=== PATIENT | male | born 1935 ===

== ENCOUNTER 2016-10-28 09:40 | Emergency (ER) | payer MEDICARE, MEDICAID ==
[~2016-10-28] VITALS: Ht 162.6 cm; Wt 59.0 kg
--- OUTSIDE RECORDS SUMMARY | 2016-10-28 09:45 | XMS REPORT | Continuity of Care Document ---
Author Author [facility] Address Unknown Phone Unavailable Support Name Relationship Address Phone ESTHER BARRAZA MD Caregiver [address] [place] [address] Unavailable ESTHER BARRAZA MD Caregiver [address] [place] [address] Unavailable MANOHAR WALDEN MD Caregiver [address] [place] [address] Unavailable ARELY SALAS MD Caregiver [address] [place] [address] Unavailable LANDY NETTLES Next Of Kin [address] [place] [address] Insurance Providers Guarantor Eduardo Nettles Address [address] [place] [address] Email DENIED/NO TO PT PORT/NO EMAIL Payer [employer] Policy Number [id number] Subscriber's Name Eduardo Nettles Relationship 18 Self Effective Date 15 Advance Directives Directive Response Recorded Date/Time Advanced Directives Type DPOA for Healthcare Unable to Obtain 05/24/16 9:35am Ordered Resuscitation Status Do Not Resuscitate 05/24/16 12:39pm Resuscitation Documents on File No 05/24/16 1:45pm DPOA for Healthcare Only Y DAUGHTER-ALVAREZ 05/24/16 1:45pm Living Will No 05/24/16 1:45pm Problems Active Problems Medical Problem Onset Date Status Acute respiratory failure with hypoxia Unknown Resolved Bone metastases Unknown Chronic Chronic back pain Unknown Chronic Chronic steroid use Unknown Chronic Edema of upper extremity Unknown Acute History of kidney stones Unknown Resolved Hypocalcemia Unknown Acute Hypokalemia Unknown Resolved Immunocompromised patient Unknown Acute Macrocytic anemia Unknown Prostate cancer Unknown Chronic Septic shock Unknown Resolved Severe sepsis Unknown Acute Tachycardia Unknown Resolved Past Problems Medical Problem Onset Date Sepsis Unknown Medications Current Home Medications Medication Dose Units Route Directions Days Qty Instructions Start Date Amox Tr/Potassium Clavulanate (Amox Tr-K Clv 875-125 Mg Tab) 875 Mg Tablet 875 Mg Oral Twice A Day for Infection 7 05/30/16 Aspirin 81 Mg Tab.chew 81 Mg Oral Daily 05/24/16 Calcium Carbonate/Vitamin D3 (Calcium 600 + Vit D 400 Tablet) 1 Each Tablet 1 Tab Oral Twice A Day 100 Tablet 05/30/16 Docusate Sodium 100 Mg Tablet 200 Mg Oral Daily 05/24/16 Dronabinol 2.5 Mg Capsule 2.5 Mg Oral Twice A Day 05/24/16 Guaifenesin (Mucinex) 600 Mg Tbbp.12hr 600 Mg Oral Twice A Day for Congestion 10 05/30/16 Hydrocodone/Acetaminophen ([place] 10-325 Tablet) 10-325 Tablet 1 Tab Oral Four Times Daily 05/24/16 Loratadine (Claritin) 10 Mg Tablet 10 Mg Oral Daily 05/24/16 Omeprazole Magnesium (Prilosec Otc) 20 Mg Tablet.dr 20 Mg Oral Twice A Day 05/24/16 Ondansetron Hcl 4 Mg Tablet 4 Mg Oral Q6h/0300,0900,1500,2100 as needed for Nausea 30 Tablet 05/30/16 Oxycodone Hcl (Oxycodone Hcl Er) 20 Mg Tab.er.12h 20 Mg Oral Twice A Day 05/24/16 Polyethylene Glycol 3350 (Miralax) 17 Gm Powd.pack 17 G Oral Daily 05/24/16 Prednisone 5 Mg Tablet 5 Mg Oral Twice A Day 05/24/16 Tamsulosin Hcl 0.4 Mg Cap.er.24h 0.4 Mg Oral Bedtime 05/24/16 Past Home Medications Medication Directions Ordered Status Calcium Carbonate/Vitamin D3 (Calcium 600 + Vit D 200 Tablet) 1 Each Tablet, 1 Tab Oral Daily 05/24/16 Discontinued Social History Social History Problem Response Recorded Date/Time Onset Date Status Chronic narcotic use 05/24/2016 4:57pm Unknown Active Reason for Hospitalization Sepsis 05/30/2016 3:09pm Not Applicable Not Applicable Hx Alcohol Use No 05/24/2016 10:13am Not Applicable Not Applicable Has the pt used tobacco in the last 12 months No 05/24/2016 1:39pm Not Applicable Not Applicable Query Response Start Date Stop Date Smoking Status Never smoker Hospital Discharge Instructions Instructions: Care Instructions: Reason for Hospitalization: Sepsis I was in the hospital because (patient own words): UNABLE TO SAY Discharge Diet: Regular Discharge Activity: As tolerated - O2 at 2L with activities Follow Up Appointments: Dr Crowder on 05/31/2016 Dr Salas in 1 week [phone] 06/06/16 10:30 WITH RAMU. Pending Lab / Results: Follow up w/ your PCP Patient Instructions: Mucinex 600mg twice a day for 5 days, then as needed for congestion. Start Augmentin this evening Deep breathing excersises 6 times a day. May follow up on ECHO report with Dr Salas Wound/Incision Care: n/a Durable Medical Equipment: O2 at 2L with ambulation Pain Management/Treatment: Continue prior pain medications Expected Signs/Symptoms: Improvement of respiratory and functional status Notify Physician If: Temp >100.4. Intractable n/v. During Business Hours:: Please call the physician's office at After Business Hours:: Please call [phone] and have the shredding floor equipment operator page the physician. Condition at time of discharge: Good Plan of Care Discharge Date 05/30/16 4:53pm Disposition 01 DISCHARGED HOME, SELF-CARE Instructions/Education Provided DI for Sepsis -- Adult Prescriptions See Medication Section Care Plan and Goals See Discharge Instructions Section Functional Status Query Response Date Recorded Mobility Status Ambulatory May 30, 2016 3:09pm Assistive Devices None May 30, 2016 3:09pm Activity Limitations Weakness Fatigue May 30, 2016 3:09pm Feeding Ability Independent May 30, 2016 3:09pm Toileting Ability Independent May 30, 2016 3:09pm Grooming Ability Independent May 30, 2016 3:09pm Dressing Ability Independent May 30, 2016 3:09pm Driving Ability Independent May 30, 2016 3:09pm Housework Ability Assist May 30, 2016 3:09pm Meal Preparation Ability Assist May 30, 2016 3:09pm Stair Climbing Ability Assist May 30, 2016 3:09pm Ability to complete ADL's impeded by No change May 30, 2016 3:09pm Cognitive/Perceptual Impairments Impaired vision May 30, 2016 3:09pm Visual Assistive Devices Glasses May 30, 2016 1:25pm Allergies, Adverse Reactions, Alerts Allergen Type Severity Reaction Status Last Updated Iodinated Contrast Media - IV Dye Allergy Unknown Active 05/24/16 Immunizations Query Response on File Recorded Date/Time Hx Influenza Vaccination No 05/24/16 1:39pm Hx Pneumococcal Vaccination UNKNOWN 05/24/16 1:39pm Hx Influenza Vaccination No 05/24/16 1:39pm Vital Signs Acute Vital Signs Vital Response Date/Time Temperature (Fahrenheit) 99.0 deg F (96.8 - 99.1) 05/30/2016 8:00am Temperature (Calculated Celsius) 37.52117 degrees C (36.0 - 37.3) 05/30/2016 8:00am Pulse Rate (adult) 113 bpm (60 - 100) 05/30/2016 11:35am Respiratory Rate 17 breaths/min (10 - 20) 05/30/2016 11:35am O2 Sat by Pulse Oximetry 91 % (90 - 100) 05/30/2016 11:35am Oxygen Delivery Method Room Air 05/30/2016 5:52am Oxygen Delivery Method Room Air 05/30/2016 11:35am Oxygen Flow Rate 1.00 L/min 05/25/2016 7:30am Blood Pressure 107/65 mm Hg 05/30/2016 11:35am Blood Pressure Source Arterial Line 05/30/2016 8:00am Height (Feet) 5 feet 05/30/2016 1:08pm Height (Inches) 7.00 inches 05/30/2016 1:08pm Weight (Kilograms) 58.400 kg 05/30/2016 8:00am Body Mass Index (BMI) 20.0 05/24/2016 1:37pm Results Laboratory Results Test Name Result Units Flags Reference Collection Date/Time Result Date/ Time Comments White Blood Count 13.2 T/MM3 D H 4.5-11.0 05/30/2016 4:33am 05/30/2016 5: 12am Red Blood Count 3.06 M/MM3 L 4.50-5.90 05/30/2016 4:33am 05/30/2016 5: 12am Hemoglobin 10.0 GM/DL L 13.5-17.5 05/30/2016 4:33am 05/30/2016 5:12am Hematocrit 30.3 % L 41-53 05/30/2016 4:33am 05/30/2016 5:12am Mean Corpuscular Volume 99.0 UM3 80-100 05/30/2016 4:33am 05/30/2016 5: 12am Mean Corpuscular Hemoglobin 32.7 UUG 26-34 05/30/2016 4:33am 2015 5:12am Mean Corpuscular Hemoglobin Concent 33.0 GM/DL 31-37 05/30/2016 4:3305/30/2016 5:12am RDW Standard Deviation 55.2 FL H 36.9-50.2 05/30/2016 4:3305/30/2016 5:12am Platelet Count 299 T/MM3 130-400 05/30/2016 4:3305/30/2016 5:12am Mean Platelet Volume 9.2 UM3 L 9.4-12.4 05/30/2016 4:3305/30/2016 5: 12am Neutrophils (%) (Auto) 72.7 % H 33-66 05/30/2016 4:3305/30/2016 5: 12am Lymphocytes (%) (Auto) 16.0 % L 23-45 05/30/2016 4:3305/30/2016 5: 12am Monocytes (%) (Auto) 10.1 % H 0-9.0 05/30/2016 4:3305/30/2016 5:12am Eosinophils (%) (Auto) 0.3 % 0-4 05/30/2016 4:3305/30/2016 5:12am Basophils (%) (Auto) 0.1 % 0-2 05/30/2016 4:3305/30/2016 5:12am Immature Granulocyte % (Auto) 0.8 % H 0.0-0.5 05/30/2016 4:332015 5:12am Absolute Neutrophils (auto) 9.6 T/MM3 H 1.8-7.7 05/30/2016 4:332015 5:12am Absolute Lymphocytes (auto) 2.1 T/MM3 1-4.8 05/30/2016 4:332015 5:12am Absolute Monocytes (auto) 1.3 T/MM3 H 0-0.8 05/30/2016 4:332015 5:12am Absolute Eosinophils (auto) 0.0 T/MM3 0-0.5 05/30/2016 4:332015 5:12am Absolute Basophils (auto) 0.0 T/MM3 0-0.2 05/30/2016 4:3305/30/2016 5:12am Absolute Immature Granulocyte (auto 0.10 T/MM3 H 0.00-0.03 05/30/2016 4: 33am 05/30/2016 5:12am Neutrophils % (Manual) 77.1 % H 33-66 05/26/2016 1:55am 05/26/2016 2: 07am Band Neutrophils % 6.0 % 0-6 05/25/2016 4:55am 05/25/2016 6:34am Lymphocytes % (Manual) 10.4 % L 23-45 05/26/2016 1:55am 05/26/2016 2: 07am Monocytes % (Manual) 12.0 % H 0-9.0 05/26/2016 1:55am 05/26/2016 2:07am Eosinophils % (Manual) 0.0 % 0-4 05/26/2016 1:55am 05/26/2016 2:07am Basophils % (Manual) 0.0 % 0-2 05/26/2016 1:55am 05/26/2016 2:07am Metamyelocytes % 1.0 % H 0-0 05/25/2016 4:55am 05/25/2016 6:34am Band Neutrophils # 0.5 T/MM3 05/25/2016 4:55am 05/25/2016 6:34am Absolute Neutrophils (Manual) 6.6 T/MM3 1.8-7.7 05/26/2016 1:55am 05/26 2:07am Lymphocytes # (Manual) 0.9 T/MM3 L 1-4.8 05/26/2016 1:55am 05/26/2016 2: 07am Monocytes # (Manual) 1.0 T/MM3 H 0-0.8 05/26/2016 1:55am 05/26/2016 2: 07am Eosinophils # (Manual) 0.0 T/MM3 0-0.5 05/26/2016 1:55am 05/26/2016 2: 07am Basophils # (Manual) 0.0 T/MM3 0-0.2 05/26/2016 1:55am 05/26/2016 2: 07am Metamyelocytes # 0.1 T/MM3 05/25/2016 4:55am 05/25/2016 6:34am Red Cell Morphology Comment NORMAL 05/26/2016 1:55am 05/26/2016 2: 07am Anisocytosis 1+ 05/25/2016 4:55am 05/25/2016 6:34am Icterus Index < 2 0-7 05/30/2016 4:33am 05/30/2016 5:26am Chemistry Specimen Hemolysis < 15 0-25 05/30/2016 4:33am 05/30/2016 5 :26am 0-25: Specimen Exhibited No Hemolysis. Turbidity < 20 0-20 05/30/2016 4:33am 05/30/2016 5:26am Sodium Level 142 MEQ/L 134-144 05/30/2016 4:33am 05/30/2016 5:26am Potassium Level 3.4 MEQ/L L 3.6-5 05/30/2016 4:33am 05/30/2016 5:26am Chloride Level 103 MEQ/L 98-107 05/30/2016 4:33am 05/30/2016 5:26am Carbon Dioxide Level 28 MEQ/L 22-30 05/30/2016 4:33am 05/30/2016 5: 26am Anion Gap 11 MEQ/L 5-15 05/30/2016 4:33am 05/30/2016 5:26am Blood Urea Nitrogen 17.0 MG/DL 9-20 05/30/2016 4:33am 05/30/2016 5: 26am Creatinine 0.6 MG/DL L 0.8-1.5 05/30/2016 4:33am 05/30/2016 5:26am BUN/Creatinine Ratio 28 RATIO H 6-26 05/30/2016 4:33am 05/30/2016 5: 26am Glomerular Filtration Rate Calc 129 05/30/2016 4:33am 05/30/2016 5: 26am Glucose Level 104 MG/DL 75-110 05/30/2016 4:33am 05/30/2016 5:26am Calculated Osmolality 275 MOSM/KG 261-280 05/30/2016 4:33am 05/30/2016 5:26am Calcium Level 6.8 MG/DL L 8.4-10.2 05/30/2016 4:33am 05/30/2016 5:26am Phosphorus Level 2.0 MG/DL L 2.5-4.5 05/29/2016 4:22am 05/29/2016 5: 10am Total Bilirubin 0.50 MG/DL 0.20-1.30 05/25/2016 4:55am 05/25/2016 5: 30am Alkaline Phosphatase 87 U/L D 38-126 05/25/2016 4:55am 05/25/2016 5:32am Total Protein 4.9 G/DL L 6.3-8.2 05/25/2016 4:55am 05/25/2016 5:30am Albumin 2.6 G/DL L 3.5-5.0 05/29/2016 4:22am 05/29/2016 5:10am Globulin 2.4 G/DL 2.4-3.6 05/25/2016 4:55am 05/25/2016 5:30am Albumin/Globulin Ratio 1.0 RATIO L 1.1-2.2 05/25/2016 4:55am 05/25/2016 5:30am Aspartate Amino Transf (AST/SGOT) 62 U/L H 17-59 05/25/2016 4:55am 05/25 5:30am Alanine Aminotransferase (ALT/SGPT) 29 U/L 21-72 05/25/2016 4:55am 06/2015 5:30am C-Reactive Protein 8.2 MG/L 0-9 05/24/2016 10:22am 05/24/2016 11:03am Magnesium Level 2.0 MG/DL 1.6-2.3 05/29/2016 4:22am 05/29/2016 6:00am Plasma Lactate 0.9 MMOL/L 0.6-2.2 05/25/2016 4:55am 05/25/2016 5:28am Procalcitonin 0.24 NG/ML 05/24/2016 10:41am 05/24/2016 11:34am PCT < /=0.5 ng/mL - sepsis not likely; PCT >0.5 and </=2 ng/mL - sepsis possible; PCT >2 ng/mL - sepsis likely; PCT >/=10 ng/mL - systemic inflammatory response - sepsis or septic shock highly indicated. Vitamin B12 Level > 1000 PG/ML H 239-931 05/26/2016 1:55am 05/29/2016 2: 44am Folate 15.9 NG/ML 2.76-20 05/26/2016 1:55am 05/29/2016 2:44am NORMAL ADULT RANGE: 2.76->20 ng/mL Vancomycin Level Trough 14.66 UG/ML L 15-20 05/26/2016 1:55am 2015 2:16am MRSA Specimen Source NASAL 05/25/2016 4:55am 05/25/2016 8:52am Methicillin-Resist S.aureus DNA PCR NEGATIVE NEGATIVE 05/25/2016 4: 55am 05/25/2016 8:52am Adenovirus (PCR) NEGATIVE NEGATIVE 05/24/2016 6:05pm 05/24/2016 8: 13pm Coronavirus Type 229E (PCR) NEGATIVE NEGATIVE 05/24/2016 6:05pm 05/24 8:13pm Coronavirus Type HKU1 (PCR) NEGATIVE NEGATIVE 05/24/2016 6:05pm 05/24 8:13pm Coronavirus Type NL63 (PCR) NEGATIVE NEGATIVE 05/24/2016 6:05pm 05/24 8:13pm Coronavirus Type OC43 (PCR) NEGATIVE NEGATIVE 05/24/2016 6:05pm 05/24 8:13pm Human Metapneumovirus (PCR) NEGATIVE NEGATIVE 05/24/2016 6:05pm 05/24 8:13pm Enterovirus/Rhinovirus (PCR) NEGATIVE NEGATIVE 05/24/2016 6:05pm 8:13pm Influenza Virus Type A (PCR) NEGATIVE NEGATIVE 05/24/2016 6:05pm 8:13pm Influenza Virus Type B (PCR) NEGATIVE NEGATIVE 05/24/2016 6:05pm 8:13pm Parainfluenza Type 1 (PCR) NEGATIVE NEGATIVE 05/24/2016 6:05pm 2015 8:13pm Parainfluenza Type 2 (PCR) NEGATIVE NEGATIVE 05/24/2016 6:05pm 2015 8:13pm Parainfluenza Type 3 (PCR) NEGATIVE NEGATIVE 05/24/2016 6:05pm 2015 8:13pm Parainfluenza Type 4 (PCR) NEGATIVE NEGATIVE 05/24/2016 6:05pm 2015 8:13pm Respiratory Syncytial Virus (PCR) NEGATIVE NEGATIVE 05/24/2016 6:05pm 05/24/2016 8:13pm Bordetella parapertussis DNA (PCR) NEGATIVE NEGATIVE 05/24/2016 6: 05pm 05/24/2016 8:13pm Chlamydia pneumoniae DNA (PCR) NEGATIVE NEGATIVE 05/24/2016 6:05pm 8:13pm Mycoplasma pneumoniae (PCR) NEGATIVE NEGATIVE 05/24/2016 6:05pm 05/24 8:13pm Urine Collection Type VOIDED-NOT CC-MIDSTR 05/24/2016 11:48am 05/24 11:54am Urine Color YELLOW YELLOW 05/24/2016 11:48am 05/24/2016 11:54am Urine Turbidity CLEAR CLEAR 05/24/2016 11:48am 05/24/2016 11:54am Urine Specific [place] 1.020 1.015-1.025 05/24/2016 11:48am 2015 11:54am Urine pH 6.0 5.0-8.0 05/24/2016 11:48am 05/24/2016 11:54am Urine Leukocyte Esterase NEGATIVE NEGATIVE 05/24/2016 11:48am 2015 11:54am Urine Nitrite NEGATIVE NEGATIVE 05/24/2016 11:48am 05/24/2016 11: 54am Urine Protein NEGATIVE NEGATIVE 05/24/2016 11:48am 05/24/2016 11: 54am Urine Glucose (UA) NEGATIVE NEGATIVE 05/24/2016 11:48am 05/24/2016 11 :54am Urine Ketones NEGATIVE NEGATIVE 05/24/2016 11:48am 05/24/2016 11: 54am Urine Urobilinogen 0.2 EU/DL NORMAL 05/24/2016 11:48am 05/24/2016 11: 54am Urine Bilirubin NEGATIVE NEGATIVE 05/24/2016 11:48am 05/24/2016 11: 54am Urine Blood TRACE-INTACT A NEGATIVE 05/24/2016 11:48am 05/24/2016 11: 54am Urinalysis Comment MICROSCOPIC NOT IND. 05/24/2016 11:48am 2015 11:54am Glucometer 138 mg/dL H 75-110 05/26/2016 6:16am 05/29/2016 12:07pm Microbiology Results Procedure Source Organism/Result Collection Date/Time Result Date/Time Result Status Blood Culture Peripheral/Iv Start NO GROWTH AFTER 5 DAYS 05/24/2016 10: 40am 05/29/2016 10:47am Final Sputum Culture Sputum, Expectorated Sputum NORMAL RESPIRATORY GARRET 2015 4:23am 05/27/2016 12:52pm Final YEAST 05/26/2016 4:23am 05/27/2016 12:52pm Final Name: EDUARDO NETTLES Unit #: [id number] : 1935 Sex: M Admit Date: 05/24/16 Loc / Svc: MED Discharge Date: DIAGNOSTIC IMAGING [facility]PORT [id number].REASON: superficial thrombosis this arm, now more swollen, rule out DVT PROCEDURE: US VENOUS DUPLEX, UPPER EXT LT: Encounter: Initial Comparison: May 26, 2016 Technique: Color Doppler duplex and grayscale sonographic imaging of the left upper extremity was performed. FINDINGS: There is no evidence for acute deep venous thrombosis in the left arm. Nonocclusive superficial thrombosis is again seen in the left cephalic vein. The left internal jugular, subclavian, axillary and paired brachial veins were evaluated; compression and augmentation were applied where possible. In addition, color and pulsed Doppler demonstrate appropriate spontaneous flow, cardiac pulsatility and variation with respiration. IMPRESSION: No evidence of acute DVT in the left upper extremity. . Procedures Procedure Status Date Provider(s) BONE IMAGING WHOLE BODY Completed 03/06/16 [id number]"TECHNETIUM TC-99M MEDRONATE, DIAGNOSTIC, PER STUDY DO Completed BONE IMAGING WHOLE BODY Completed 05/01/16 [id number]"TECHNETIUM TC-99M MEDRONATE, DIAGNOSTIC, PER STUDY DO Completed Encounters Encounter Location Arrival/Admit Date Discharge/Depart Date Attending Provider Discharged Inpatient [facility] 05/24/16 12:38pm 05/30/16 4:53pm ESTHER BARRAZA MD Registered [facility] 05/01/16 8:24am RHONA CROWDER MD [facility] 03/06/16 9:05am RHONA CROWDER MD
[2016-10-28] MEDS ORDERED: FLUORESCEIN (FLUOR-I-STRIPS) 1 MG STRIP OS ONE (10:15)
[2016-10-28] MEDS ORDERED: DRNB2.5C PO (10:17)
[2016-10-28] MEDS ORDERED: ASPI-860 PO (10:23)
[2016-10-28] MEDS ORDERED: DOCU100C8 PO (10:23)
[2016-10-28] MEDS ORDERED: PRD5T PO (10:23)
[2016-10-28] MEDS ORDERED: CALC-140 PO (10:23)
[2016-10-28] MEDS ORDERED: OMEP20TA33 PO (10:23)
[2016-10-28] MEDS ORDERED: ACHYD1T PO (10:23)
[2016-10-28] MEDS ORDERED: LORA10CA PO (10:23)
[2016-10-28] MEDS ORDERED: TAMS0.4C2 PO (10:23)
[2016-10-28] MEDS ORDERED: OXYC30TA77 PO (10:23)
[2016-10-28] MEDS ORDERED: CEPH-331 PO (10:35)
[2016-10-28] MEDS ORDERED: POLY10DR OS (10:35)
[2016-10-28 10:38] VITALS: BP 99/58
== END 2016-10-28 10:38 | disposition home or self-care (01) ==
LOC: ED 09:46
DX: H00.015 Hordeolum externum left lower eyelid (principal)
CPT/HCPCS: 99283; A9270

== ENCOUNTER → 2016-11-11 | Outpatient (CLI) | payer MEDICARE, MEDICAID ==
[~2016-11-11] MED LIST: ACHYD1T PO; ASPI-860 PO; CALC-140 PO; CEPH-331 PO; DOCU100C8 PO; DRNB2.5C PO; LORA10CA PO; OMEP20TA33 PO; OXYC30TA77 PO; POLY10DR OS; PRD5T PO; TAMS0.4C2 PO
== END ==
LOC: EMS 07:00
DX: R11.0 Nausea (principal); M79.652 Pain in left thigh; C41.9 Malignant neoplasm of bone and articular cartilage, unspecified